=== PATIENT | female | born 2000 | race Two or more races ===

== ENCOUNTER 2023-11-14 00:40 | Emergency (ER) | payer OTHER ==
[~2023-11-14] VITALS: Ht 170.2 cm; Wt 61.7 kg
[2023-11-14] MEDS ORDERED: CEPHALEXIN500 MG PO (02:37)
[2023-11-14] MEDS ORDERED: MONISTAT 315 GM VAG (02:37)
[2023-11-14] MEDS ORDERED: FLUCONAZOLE150 MG PO (02:51)
== END 2023-11-14 02:55 | disposition home or self-care (01) ==
LOC: ER 00:41
DX: H60.8X2 Other otitis externa, left ear (principal)